=== PATIENT | male | born 1990 | race Asian ===

== ENCOUNTER 2019-12-05 04:07 | Inpatient (IN) | payer MEDICAID, OTHER, SELFPAY ==
[~2019-12-05] VITALS: Ht 185.4 cm; Wt 170.1 kg
--- NOTE | 2019-12-05 04:10 | NUR ---
PAGED CODE NEURO @[id number] Addendum: 12/05/19 at 0417 by LEXY PAGED NEURO @[phone]
--- NOTE | 2019-12-05 04:39 | NUR ---
PT. STRAIGHT TO CT UPON ARRIVAL. ARRIVED BACK TO ROOM IN ED AT THIS TIME. IV ESTABLISHED FOR CT. PT. WAS ABLE TO MOVE SELF FROM GURNEY TO CT TABLE. AFTER CT PT. STARTED VOMITING. PT. DENIES NAUSE AT THIS TIME. ALL MONITORS PLACED. EKG DONE. LAB AT BS.
[2019-12-05] MEDS ORDERED: OMNIPAQUE 350 MG/ML, 100ML BOTTLE ONE (04:49)
[2019-12-05] MEDS ORDERED: PROCHLORPERAZINE 5 MG/ML, 2ML ONE ×2 (04:56→06:05)
[2019-12-05] MEDS ORDERED: hydrALAzine 20 MG/ML, 1ML ONE (04:56)
[2019-12-05] MEDS ORDERED: DIPHENHYDRAMINE 50 MG/ML, 1ML ONE ×2 (04:56→06:05)
[2019-12-05] MEDS ORDERED: KETOROLAC 30 MG/1 ML ONE ×2 (04:57→06:05)
[2019-12-05 04:59] LABS: BASOPHILS # (AUTO) 0.02 x10^3/uL (0-0.1); BASOPHILS % (AUTO) 0 % (0-1); EOSINOPHILS # (AUTO) 0.16 x10^3/uL (0-0.4); EOSINOPHILS % (AUTO) 2 % (1-7); LYMPHOCYTES # (AUTO) 1.86 x10^3/uL (1-3.4); LYMPHOCYTES % (AUTO) 23 % (22-44); MD NO; MEAN CORPUSCULAR HEMOGLOBIN 30.7 pg (27.5-34.5); MEAN CORPUSCULAR HGB CONC 33.5 g/dL (33.2-36.2); MEAN CORPUSCULAR VOLUME 91.8 fL (81-97); MEAN PLATELET VOLUME 7.8 fL (7.4-10.4); MONOCYTES # (AUTO) 0.45 x10^3/uL (0.2-0.8); MONOCYTES % (AUTO) 6 % (2-9); NEUTROPHILS % (AUTO) 69 % (42-75); PLATELET COUNT 339 x10^3/uL (130-400); RED BLOOD COUNT 5.27 x10^6/uL (4.38-5.82); RED CELL DISTRIBUTION WIDTH 13.7 % (9.4-14.8)
[2019-12-05] MEDS ORDERED: PROCHLORPERAZINE 5 MG/ML, 2ML IVPush ONE (05:00)
[2019-12-05] MEDS ORDERED: hydrALAzine 20 MG/ML, 1ML IV ONE (05:00)
[2019-12-05] MEDS ORDERED: DIPHENHYDRAMINE 50 MG/ML, 1ML IVPush ONE (05:00)
[2019-12-05] MEDS ORDERED: KETOROLAC 30 MG/1 ML IVPush ONE (05:00)
[2019-12-05 05:08] LABS: INTERNATIONAL NORMALIZED RATIO 0.93 (0.93-1.1); PROTHROMBIN TIME 9.9 Seconds (9.6-11.5)
[2019-12-05 05:10] LABS: ALANINE AMINOTRANSFERASE 57 U/L (12-78); ALBUMIN 3.3 g/dL (3.4-5.0); ANION GAP 5 mmol/L (5-15); CALCIUM 8.8 mg/dL (8.5-10.1); CHLORIDE 105 mmol/L (98-107); CREATININE 1.45 mg/dL (0.7-1.3)
--- NOTE | 2019-12-05 05:10 | NUR ---
PT. VISITING WITH FAMILY MEMBER AT . PT. CONTINUES TO C/O BLINDNESS. STATES MAE IS ONLY MILD /. DENIES ANY OTHER SYMPTOMS. A&O X 4 AT THIS TIME AND ABLE TO FOLLOW ALL COMMANDS. ABLE TO MOVE ALL EXTREMITIES. SENSATIONS EQUAL BILAT UE, LE, AND FACE.
[2019-12-05 05:13] LABS: ALKALINE PHOSPHATASE 74 U/L (45-117); BILIRUBIN,TOTAL 0.6 mg/dL (0.2-1.0); TOTAL PROTEIN 7.7 g/dL (6.4-8.2)
[2019-12-05 05:38] LABS: TROPONIN I 0.128 ng/mL (0.000-0.045)
[2019-12-05] MEDS ORDERED: ASPIRIN 81 MG TABLET CHEW ONE (05:57)
[2019-12-05] MEDS ORDERED: ASPIRIN 81 MG TABLET CHEW PO ONE (06:00)
--- NOTE | 2019-12-05 06:11 | NUR ---
PT. REPORTS MAE BACK UP TO 06/12. PT. REPORTS UNABLE TO SEE OUT OF BOTH EYES STILL; BUT NO OTHER NEURO CHANGES. MEDICATED PER NOV. 900ML OF CLEAR YELLOW URINE EMPTIED FROM URINAL.
--- NOTE | 2019-12-05 06:42 | NUR ---
AT TO EVAL PT. FOR ADMISSION. PT. DROWSY AND DOZING IN/OUT OF CONVERSATION. MD AWARE OF PT. BEING MEDICATED FOR PAIN. PT. REPORTS MODERATE MAE STILL.
--- NOTE | 2019-12-05 06:46 | NUR ---
PER DR. GUARDADO NO COVID TESTING NEEDED FOR ADMISSION.
--- NOTE | 2019-12-05 06:53 | NUR ---
FIRST ATTEMPT TO CALL REPORT TO FLOOR.
--- NOTE | 2019-12-05 06:53 | NUR ---
Daria barr in [facility] - 12/05/19 at 0714 by [email or web address] FIRST ATTEMPT TO CALL REPORT TO FLOOR.
[2019-12-05] MEDS ORDERED: ONDANSETRON 2MG/ML, 2ML IVPush PRN (07:00)
[2019-12-05] MEDS ORDERED: hydrALAzine 20 MG/ML, 1ML IVPush PRN (07:00)
[2019-12-05] MEDS ORDERED: ENOXAPARIN 40 MG/0.4 ML SQ SCH (07:00)
[2019-12-05] MEDS ORDERED: SODIUM CHLORIDE 0.9% 1,000 ML IV SCH (07:00)
[2019-12-05] MEDS ORDERED: morphine SULFATE 10 MG/ML, 1ML IVPush PRN (07:00)
--- NOTE | 2019-12-05 07:14 | NUR ---
2ND ATTEMPT TO CALL REPORT TO FLOOR.
--- NOTE | 2019-12-05 07:15 | NUR ---
REPORT TO PAULINE MANE TO ASSUME CARE.
--- NOTE | 2019-12-05 07:26 | NUR ---
BEDSIDE REPORT AND CARE FROM SIVA CARPENTER AT THIS TIME. ROOM 403-1 RECEIVED. PHONE/VERBAL REPORT CALLED TO FLOOR PAULINE MEDINA. PT A&OX4. REPORTS VISION "A LITTLE BETTER, I CAN SEE YOUR HAIR, IT'S BLONDE RIGHT, AND YOUR FACE BUT BLURRY." PT CORRECT IN RN'S HAIR COLOR. REPORTS MAE PAIN IMPROVED "MUCH MORE CALM, PAIN BETTER." RATES PAIN 2-3/10. PERRL. NEURO INTACT. EQUAL AND STRONG GRASPS/FLEXION/DORSIFLEXION. CMS INTACT. FAMILY AT BEDSIDE. SR ON MONITOR. VSS. CALL LIGHT IN REACH. FALL PRECUATIONS IN PLACE. READY FOR TRANSPORT TO FLOOR.
[2019-12-05 07:31] LABS: CHOL/HDL RATIO 8.7; LDL/HDL RATIO 6.3 (0.5-3.0)
[2019-12-05 07:55] VITALS: BP 158/93
[2019-12-05 08:58] LABS: AMPHETAMINE SCREEN, URINE Negative (Negative); BARBITURATE SCREEN, URINE Negative (Negative); BENZODIAZEPINE SCREEN, URINE Negative (Negative); CANNABINOID SCREEN, URINE Negative (Negative); COCAINE SCREEN, URINE Negative (Negative); METHADONE SCREEN, URINE Negative (Negative); OPIATE SCREEN, URINE Negative (Negative)
[2019-12-05] MEDS: ATORVASTATIN 80 MG TABLET PO SCH ×2 (11:25→21:01)
[2019-12-05 12:35] VITALS: BP 156/59
--- NOTE | 2019-12-05 13:05 | NUR ---
REC: regular/thin liquids - do not anticipate need for CONSULTING SERVICES PROJECT MANAGER intervention in regards to dysphagia at time of discharge. Addendum: 12/05/19 at 1310 by Alexandra WHITT Amended: Links added.
[2019-12-05 13:13] LABS: ANION GAP 7 mmol/L (5-15); CALCIUM 9.3 mg/dL (8.5-10.1); CHLORIDE 106 mmol/L (98-107); CREATININE 1.34 mg/dL (0.7-1.3)
[2019-12-05 13:17] LABS: TROPONIN I 0.122 ng/mL (0.000-0.045)
[2019-12-05] MEDS ORDERED: METO50TA6 PO (14:58)
[2019-12-05] MEDS ORDERED: FURO40TA6 PO (14:58)
[2019-12-05] MEDS ORDERED: TOPI50CA6 PO (14:58)
[2019-12-05] MEDS ORDERED: ATOR-2 PO (14:58)
[2019-12-05] MEDS ORDERED: LISI-420 PO (14:58)
[2019-12-05] MEDS ORDERED: BUTA-177 PO (14:58)
[2019-12-05] MEDS ORDERED: ASPI81TA59 PO (14:58)
[2019-12-05] MEDS ORDERED: COLC0.6C3 PO (14:58)
[2019-12-05 19:08] VITALS: BP 146/98
[2019-12-06 00:44] VITALS: BP 161/92
[2019-12-06 04:33] LABS: ANION GAP 9 mmol/L (5-15); CALCIUM 8.9 mg/dL (8.5-10.1); CHLORIDE 107 mmol/L (98-107)
[2019-12-06 04:35] LABS: CREATININE 1.52 mg/dL (0.7-1.3)
[2019-12-06 04:39] LABS: BASOPHILS # (AUTO) 0.04 x10^3/uL (0-0.1); BASOPHILS % (AUTO) 0 % (0-1); EOSINOPHILS # (AUTO) 0.16 x10^3/uL (0-0.4); EOSINOPHILS % (AUTO) 2 % (1-7); LYMPHOCYTES # (AUTO) 1.89 x10^3/uL (1-3.4); LYMPHOCYTES % (AUTO) 20 % (22-44); MD NO; MEAN CORPUSCULAR HEMOGLOBIN 30.9 pg (27.5-34.5); MEAN CORPUSCULAR HGB CONC 33.8 g/dL (33.2-36.2); MEAN CORPUSCULAR VOLUME 91.6 fL (81-97); MEAN PLATELET VOLUME 8.2 fL (7.4-10.4); MONOCYTES # (AUTO) 0.55 x10^3/uL (0.2-0.8); MONOCYTES % (AUTO) 6 % (2-9); NEUTROPHILS # (AUTO) 6.95 x10^3/uL (1.8-6.8); NEUTROPHILS % (AUTO) 72 % (42-75); PLATELET COUNT 335 x10^3/uL (130-400); RED BLOOD COUNT 5.22 x10^6/uL (4.38-5.82); RED CELL DISTRIBUTION WIDTH 13.5 % (9.4-14.8)
[2019-12-06] MEDS: ASPIRIN 81 MG TABLET EC PO SCH (05:36)
[2019-12-06] MEDS: SODIUM CHLORIDE 0.9% 1,000 ML IV SCH ×6 (07:22→21:57)
[2019-12-06 08:33] LABS: TROPONIN I 0.131 ng/mL (0.000-0.045)
[2019-12-06 08:40] VITALS: BP 153/101
--- NOTE | 2019-12-06 11:56 | NUR ---
Rec: acute rehab Addendum: 12/06/19 at 1156 by Alexandra WHITT Amended: Links added.
[2019-12-06 12:50] VITALS: BP 147/109
[2019-12-06] MEDS: ACETAMINOPHEN 325 MG TABLET PO PRN ×2 (13:07→23:07)
[2019-12-06 13:28] LABS: ANION GAP 9 mmol/L (5-15); CALCIUM 8.9 mg/dL (8.5-10.1); CHLORIDE 108 mmol/L (98-107); CREATININE 1.48 mg/dL (0.7-1.3)
[2019-12-06 17:54] VITALS: BP 134/83
[2019-12-06] MEDS: CARVEDILOL 3.125 MG TABLET PO SCH (17:54)
[2019-12-06 18:35] VITALS: BP 128/82
[2019-12-06] MEDS: ATORVASTATIN 80 MG TABLET PO SCH (20:10)
[2019-12-07 00:57] VITALS: BP 138/76
[2019-12-07] MEDS: ASPIRIN 81 MG TABLET EC PO SCH (05:22)
[2019-12-07] MEDS: CARVEDILOL 3.125 MG TABLET PO SCH ×2 (05:22→17:29)
[2019-12-07] MEDS: SODIUM CHLORIDE 0.9% 1,000 ML IV SCH ×2 (05:22→07:30)
[2019-12-07 05:53] LABS: ANION GAP 7 mmol/L (5-15); CALCIUM 8.7 mg/dL (8.5-10.1); CHLORIDE 108 mmol/L (98-107); CREATININE 1.46 mg/dL (0.7-1.3)
[2019-12-07] MEDS ORDERED: ENOXAPARIN 30 MG/0.3 ML SQ SCH (07:00)
[2019-12-07 07:21] VITALS: BP 138/100
[2019-12-07] MEDS: ENOXAPARIN 40 MG/0.4 ML SQ SCH (08:34)
[2019-12-07] MEDS: LISINOPRIL 5 MG TABLET PO SCH (10:57)
[2019-12-07 15:59] VITALS: BP 136/94
[2019-12-07] MEDS: ACETAMINOPHEN 325 MG TABLET PO PRN (16:32)
[2019-12-07 18:31] VITALS: BP 142/89
[2019-12-07] MEDS: ATORVASTATIN 80 MG TABLET PO SCH (21:01)
[2019-12-08 00:13] VITALS: BP 140/93
[2019-12-08] MEDS: CARVEDILOL 3.125 MG TABLET PO SCH ×2 (04:56→17:37)
[2019-12-08 05:38] LABS: ANION GAP 8 mmol/L (5-15); CALCIUM 8.8 mg/dL (8.5-10.1); CHLORIDE 107 mmol/L (98-107)
[2019-12-08 05:39] LABS: CREATININE 1.33 mg/dL (0.7-1.3)
[2019-12-08] MEDS ORDERED: REGADENOSON 0.4 MG/5 ML SYRINGE ONE (07:42)
[2019-12-08 07:43] VITALS: BP 132/94
[2019-12-08] MEDS: LISINOPRIL 5 MG TABLET PO SCH (08:50)
[2019-12-08] MEDS: ASPIRIN 81 MG TABLET EC PO SCH (09:48)
[2019-12-08] MEDS: ENOXAPARIN 40 MG/0.4 ML SQ SCH (09:49)
[2019-12-08] MEDS: ACETAMINOPHEN 325 MG TABLET PO PRN (09:49)
[2019-12-08 11:07] VITALS: BP 135/98
[2019-12-08 14:12] VITALS: BP 147/92
[2019-12-08] MEDS: ATORVASTATIN 80 MG TABLET PO SCH (19:50)
[2019-12-08 20:00] VITALS: BP 113/79
[2019-12-09 00:56] VITALS: BP 121/84
[2019-12-09] MEDS: CARVEDILOL 3.125 MG TABLET PO SCH ×2 (05:23→16:38)
[2019-12-09] MEDS: ASPIRIN 81 MG TABLET EC PO SCH (05:23)
[2019-12-09 06:21] VITALS: BP 131/86
[2019-12-09] MEDS: ENOXAPARIN 40 MG/0.4 ML SQ SCH (08:36)
[2019-12-09] MEDS: LISINOPRIL 5 MG TABLET PO SCH (08:36)
[2019-12-09 13:11] VITALS: BP 129/89
[2019-12-09 19:35] VITALS: BP 118/84
[2019-12-09] MEDS: ATORVASTATIN 80 MG TABLET PO SCH (19:58)
[2019-12-09] MEDS: INSULIN LISPRO 100 UNITS/ML, PEN SQ-INSULIN SCH (21:00)
[2019-12-10 02:00] VITALS: BP 120/84
[2019-12-10] MEDS: ASPIRIN 81 MG TABLET EC PO SCH (05:25)
[2019-12-10] MEDS: CARVEDILOL 3.125 MG TABLET PO SCH (05:27)
[2019-12-10 05:48] LABS: ANION GAP 8 mmol/L (5-15); CALCIUM 9.3 mg/dL (8.5-10.1); CHLORIDE 106 mmol/L (98-107)
[2019-12-10 05:50] LABS: CREATININE 1.35 mg/dL (0.7-1.3)
[2019-12-10] MEDS: INSULIN LISPRO 100 UNITS/ML, PEN SQ-INSULIN SCH ×4 (07:00→20:41)
[2019-12-10 07:03] VITALS: BP 118/77
[2019-12-10] MEDS: APIXABAN 5 MG TABLET PO SCH ×2 (09:11→19:56)
[2019-12-10] MEDS: LISINOPRIL 5 MG TABLET PO SCH (09:11)
[2019-12-10 12:53] VITALS: BP 120/82
[2019-12-10] MEDS: CARVEDILOL 6.25 MG TABLET PO SCH (17:11)
[2019-12-10 19:08] VITALS: BP 118/76
[2019-12-10] MEDS: ATORVASTATIN 80 MG TABLET PO SCH (19:56)
[2019-12-11 00:44] VITALS: BP 133/78
[2019-12-11] MEDS: CARVEDILOL 6.25 MG TABLET PO SCH ×2 (05:38→17:52)
[2019-12-11] MEDS: ASPIRIN 81 MG TABLET EC PO SCH (05:38)
[2019-12-11 06:50] VITALS: BP 116/84
[2019-12-11] MEDS: LISINOPRIL 5 MG TABLET PO SCH (08:41)
[2019-12-11] MEDS: APIXABAN 5 MG TABLET PO SCH ×2 (08:41→20:16)
[2019-12-11] MEDS: INSULIN LISPRO 100 UNITS/ML, PEN SQ-INSULIN SCH ×4 (08:42→20:09)
[2019-12-11] MEDS ORDERED: COLCHICINE 0.6 MG CAPSULE PO SCH (13:00)
[2019-12-11 14:45] VITALS: BP 119/83
[2019-12-11] MEDS: ATORVASTATIN 80 MG TABLET PO SCH (20:16)
[2019-12-11 20:17] VITALS: BP 123/82
[2019-12-12 01:17] VITALS: BP 108/74
[2019-12-12 05:31] VITALS: BP 122/88
[2019-12-12] MEDS: ASPIRIN 81 MG TABLET EC PO SCH (05:32)
[2019-12-12] MEDS: CARVEDILOL 6.25 MG TABLET PO SCH ×2 (05:32→17:20)
[2019-12-12 07:15] VITALS: BP 103/69
[2019-12-12] MEDS: INSULIN LISPRO 100 UNITS/ML, PEN SQ-INSULIN SCH ×4 (09:09→19:49)
[2019-12-12] MEDS: LISINOPRIL 5 MG TABLET PO SCH (09:09)
[2019-12-12] MEDS: APIXABAN 5 MG TABLET PO SCH ×2 (09:09→20:33)
[2019-12-12 13:37] VITALS: BP 137/87
[2019-12-12 18:25] VITALS: BP 122/76
[2019-12-12] MEDS: ATORVASTATIN 80 MG TABLET PO SCH (20:33)
[2019-12-13 00:36] VITALS: BP 118/81
[2019-12-13 05:49] VITALS: BP 111/72
[2019-12-13] MEDS: CARVEDILOL 6.25 MG TABLET PO SCH ×2 (05:49→17:28)
[2019-12-13] MEDS: ASPIRIN 81 MG TABLET EC PO SCH (05:49)
[2019-12-13 07:22] VITALS: BP 132/88
[2019-12-13] MEDS: INSULIN LISPRO 100 UNITS/ML, PEN SQ-INSULIN SCH ×4 (07:52→20:16)
[2019-12-13] MEDS: LISINOPRIL 5 MG TABLET PO SCH (09:18)
[2019-12-13] MEDS: APIXABAN 5 MG TABLET PO SCH ×2 (09:18→20:16)
[2019-12-13 12:56] VITALS: BP 100/75
[2019-12-13 18:59] VITALS: BP 98/67
[2019-12-13] MEDS: ATORVASTATIN 80 MG TABLET PO SCH (20:16)
[2019-12-14 00:45] VITALS: BP 113/76
[2019-12-14] MEDS: ASPIRIN 81 MG TABLET EC PO SCH (05:31)
[2019-12-14] MEDS: CARVEDILOL 6.25 MG TABLET PO SCH ×2 (05:31→17:12)
[2019-12-14 06:28] VITALS: BP 128/71
[2019-12-14] MEDS: INSULIN LISPRO 100 UNITS/ML, PEN SQ-INSULIN SCH ×4 (07:00→20:16)
[2019-12-14] MEDS: LISINOPRIL 5 MG TABLET PO SCH (08:32)
[2019-12-14] MEDS: APIXABAN 5 MG TABLET PO SCH ×2 (08:32→20:16)
[2019-12-14 13:23] VITALS: BP 114/73
[2019-12-14 19:24] VITALS: BP 112/76
[2019-12-14] MEDS: ATORVASTATIN 80 MG TABLET PO SCH (20:16)
[2019-12-15 01:58] VITALS: BP 111/74
[2019-12-15] MEDS: CARVEDILOL 6.25 MG TABLET PO SCH ×2 (05:05→17:47)
[2019-12-15] MEDS: ASPIRIN 81 MG TABLET EC PO SCH (05:05)
[2019-12-15 05:26] LABS: ANION GAP 6 mmol/L (5-15); CALCIUM 9.2 mg/dL (8.5-10.1); CHLORIDE 105 mmol/L (98-107); CREATININE 1.41 mg/dL (0.7-1.3)
[2019-12-15 06:04] VITALS: BP 122/70
[2019-12-15] MEDS: INSULIN LISPRO 100 UNITS/ML, PEN SQ-INSULIN SCH ×4 (07:00→20:24)
[2019-12-15] MEDS: LISINOPRIL 5 MG TABLET PO SCH (08:16)
[2019-12-15] MEDS: APIXABAN 5 MG TABLET PO SCH ×2 (08:16→20:23)
[2019-12-15 12:26] VITALS: BP 123/83
[2019-12-15 18:45] VITALS: BP 125/80
[2019-12-15] MEDS: ATORVASTATIN 80 MG TABLET PO SCH (20:23)
[2019-12-16 00:25] VITALS: BP 131/80
[2019-12-16] MEDS: CARVEDILOL 6.25 MG TABLET PO SCH ×2 (05:17→17:05)
[2019-12-16] MEDS: ASPIRIN 81 MG TABLET EC PO SCH (05:17)
[2019-12-16 06:40] VITALS: BP 119/77
[2019-12-16] MEDS: INSULIN LISPRO 100 UNITS/ML, PEN SQ-INSULIN SCH ×4 (07:00→20:18)
[2019-12-16] MEDS: LISINOPRIL 5 MG TABLET PO SCH (08:25)
[2019-12-16] MEDS: APIXABAN 5 MG TABLET PO SCH ×2 (08:25→20:18)
[2019-12-16 12:11] VITALS: BP 119/83
[2019-12-16 17:04] VITALS: BP 113/78
[2019-12-16 18:37] VITALS: BP 122/67
[2019-12-16] MEDS: ATORVASTATIN 80 MG TABLET PO SCH (20:18)
[2019-12-17 00:42] VITALS: BP 128/79
[2019-12-17] MEDS: ASPIRIN 81 MG TABLET EC PO SCH (05:25)
[2019-12-17] MEDS: CARVEDILOL 6.25 MG TABLET PO SCH ×2 (05:26→17:37)
[2019-12-17 06:54] VITALS: BP 110/74
[2019-12-17] MEDS: APIXABAN 5 MG TABLET PO SCH ×2 (07:58→20:33)
[2019-12-17] MEDS: LISINOPRIL 5 MG TABLET PO SCH (07:58)
[2019-12-17] MEDS: INSULIN LISPRO 100 UNITS/ML, PEN SQ-INSULIN SCH ×4 (07:59→20:34)
[2019-12-17] MEDS ORDERED: CARV6.2512 PO (12:24)
[2019-12-17] MEDS ORDERED: METF500T PO (12:24)
[2019-12-17] MEDS ORDERED: APIX5TAB PO (12:24)
[2019-12-17] MEDS ORDERED: LISI5TAB7 PO (12:24)
[2019-12-17 13:10] VITALS: BP 130/88
[2019-12-17 18:42] VITALS: BP 117/80
[2019-12-17] MEDS: ATORVASTATIN 80 MG TABLET PO SCH (20:33)
[2019-12-18 01:14] VITALS: BP 114/79
[2019-12-18] MEDS: ACETAMINOPHEN 325 MG TABLET PO PRN (02:22)
[2019-12-18] MEDS: ASPIRIN 81 MG TABLET EC PO SCH (05:06)
[2019-12-18] MEDS: CARVEDILOL 6.25 MG TABLET PO SCH (05:06)
[2019-12-18 06:01] LABS: CREATININE 1.48 mg/dL (0.7-1.3)
[2019-12-18] MEDS: INSULIN LISPRO 100 UNITS/ML, PEN SQ-INSULIN SCH (07:00)
[2019-12-18] MEDS: LISINOPRIL 5 MG TABLET PO SCH (08:44)
[2019-12-18] MEDS: APIXABAN 5 MG TABLET PO SCH (08:44)
[2019-12-18 08:45] VITALS: BP 120/88
== END 2019-12-18 10:12 | disposition home or self-care (01) | DRG 64 ==
LOC: ED 05:00 → EDIP 06:26 → 4WST 07:36
PROVIDERS: ADMIT Internal Medicine Infectious Disease; ATTEND Family Medicine
DX: I63.533 Cerebral infarction due to unspecified occlusion or stenosis of bilateral posterior cerebral arteries (principal); I21.4 Non-ST elevation (NSTEMI) myocardial infarction; N17.0 Acute kidney failure with tubular necrosis; I50.20 Unspecified systolic (congestive) heart failure; I47.1 Supraventricular tachycardia; Z68.42 Body mass index [BMI] 45.0-49.9, adult; E87.1 Hypo-osmolality and hyponatremia; I16.9 Hypertensive crisis, unspecified; I42.8 Other cardiomyopathies; I13.0 Hypertensive heart and chronic kidney disease with heart failure and stage 1 through stage 4 chronic kidney disease, or unspecified chronic kidney disease; I69.320 Aphasia following cerebral infarction; I44.1 Atrioventricular block, second degree; E11.65 Type 2 diabetes mellitus with hyperglycemia; E66.01 Morbid (severe) obesity due to excess calories; F12.90 Cannabis use, unspecified, uncomplicated; F17.200 Nicotine dependence, unspecified, uncomplicated; G43.909 Migraine, unspecified, not intractable, without status migrainosus; H54.3 Unqualified visual loss, both eyes; N18.9 Chronic kidney disease, unspecified; E11.22 Type 2 diabetes mellitus with diabetic chronic kidney disease; I27.20 Pulmonary hypertension, unspecified; M10.9 Gout, unspecified; Z79.899 Other long term (current) drug therapy; Z82.3 Family history of stroke; Z91.19 Patient's noncompliance with other medical treatment and regimen
CPT/HCPCS: 36415; 70450; 70496; 70498; 70553; 71045; 78452; 80047; 80048; 80053; 80061; 80307; 82565; 82570; 82962; 83036; 83735; 83880; 84100; 84300; 84484; 85025; 85610; 85730; 93005; 93017; 93306; 93975; 96374; G0378; J1650; J1885; J2785; Q9967; 92523-GN; A9502; J0360; J0780; J1200; J1815; J7030